=== PATIENT | female | born 1995 | race Hispanic/Latino ===

== ENCOUNTER 2017-05-22 22:24 | Emergency (ER) | payer BC ==
[~2017-05-22] VITALS: Ht 154.9 cm; Wt 73.0 kg
[2017-05-23] MEDS ORDERED: ONDANSETRON HCL 4 MG ORAL DISINTEGRATING TAB SL ONE (00:45)
[2017-05-23] MEDS ORDERED: DICYCLOMINE HCL 20 MG TAB PO ONE (00:45)
[2017-05-23] MEDS ORDERED: ZOFRAN ODT4 MG SL (01:24)
[2017-05-23] MEDS ORDERED: BROMFED DM COU118 ML PO (01:24)
[2017-05-23 02:10] VITALS: BP 115/72
== END 2017-05-23 01:30 | disposition home or self-care (01) ==
LOC: FSED 22:24
DX: R53.83 Other fatigue (principal); B34.9 Viral infection, unspecified
CPT/HCPCS: 87400; 99283

== ENCOUNTER 2017-08-06 19:00 | Emergency (ER) | payer BC ==
[~2017-08-06] VITALS: Ht 154.9 cm; Wt 74.8 kg
[~2017-08-06 19:00] MED LIST: BROMFED DM COU118 ML PO; ZOFRAN ODT4 MG SL
[2017-08-06] MEDS ORDERED: ONDANSETRON HCL 4 MG ORAL DISINTEGRATING TAB PO STA (19:19)
[2017-08-06] MEDS ORDERED: SODIUM CHLORIDE 0.9% 1000ML 1,000 ML IV STA (19:19)
[2017-08-06] MEDS ORDERED: MORPHINE SULFATE INJ 4 MG/ML INJ IV STA (19:19)
[2017-08-06 20:34] LABS: BASOPHILS % 0.3 % (0.0-1.0); EOSINOPHILS # (AUTO) 0.1 (0.0-0.4); EOSINOPHILS % 0.9 % (0.0-6.0); HEMATOCRIT 38.1 % (34.2-44.1); HEMOGLOBIN 13.2 g/dL (12.0-16.0); LYMPHOCYTES # (AUTO) 1.1 (1.0-3.2); LYMPHOCYTES % 8.2 % (18.0-39.1); MEAN CORPUSCULAR HEMOGLOBIN 31.8 pg (28-32); MEAN CORPUSCULAR HGB CONC 34.6 g/dL (31-35); MEAN CORPUSCULAR VOLUME 91.8 fL (81-99); MONOCYTES # (AUTO) 1.2 (0.2-0.8); MONOCYTES % 8.4 % (4.4-11.3); NEUTROPHILS # (AUTO) 11.3 (2.1-6.9); PLATELET COUNT 286 x10e3/uL (140-360); RED BLOOD COUNT 4.15 x10e6/uL (3.6-5.1); RED CELL DISTRIBUTION WIDTH 12.3 % (11.7-14.4)
[2017-08-06 20:40] LABS: CLARITY,URINE SL CLOUDY (CLEAR); COLOR,URINE YELLOW (YELLOW); LEUKOCYTE ESTERASE ,URINE 1+ (NEGATIVE); NITRITE,URINE NEGATIVE (NEGATIVE); PROTEIN,URINE DIPSTICK NEGATIVE (NEGATIVE)
[2017-08-06 20:41] LABS: BILIRUBIN,URINE NEGATIVE (NEGATIVE); KETONES,URINE NEGATIVE (NEGATIVE); URINE UROBILINOGEN 0.2 mg/dL (0.2 - 1)
[2017-08-06 20:46] LABS: BACTERIA,URINE MODERATE /HPF; EPITHELIAL CELLS,URINE MODERATE /LPF
[2017-08-06 22:16] LABS: ALANINE AMINOTRANSFERASE 8 IU/L (0-55); ALBUMIN 3.4 g/dL (3.5-5.0); ALKALINE PHOSPHATASE 77 IU/L (40-150); ANION GAP 13.7 mmol/L (8-16); BLOOD UREA NITROGEN 6 mg/dL (7-26); BUN/CREATININE RATIO 9 (6-25); CALCIUM 9.2 mg/dL (8.4-10.2); CARBON DIOXIDE 21 mmol/L (22-29); CHLORIDE 104 mmol/L (98-107); CREATININE, SERUM 0.67 mg/dL (0.57-1.11); EST GLOMERULAR FILTRATION RATE > 60 ML/MIN (60-); GLUCOSE 93 mg/dL (74-118); POTASSIUM 3.7 mmol/L (3.5-5.1); SODIUM 135 mmol/L (136-145)
--- NOTE | 2017-08-06 22:35 | Diagnostic Imaging Report ---
EXAM: US PELVIC DOPPLER LTD INDICATION: Suspected ectopic . COMPARISON: None TECHNIQUE: Transabdominal evaluation of the pelvis was performed in the transverse and longitudinal planes. CLINICAL HISTORY: 22 years year old G 1 P 0 A 0; last menstrual period: 06/08/2017 FINDINGS: Uterus Orientation: Normal Size: 9 x 5.1 x 6.8 cm, enlarged Mass: None Cervix: Normal Gestational Sac: Location: Intrauterine Average sac diameter: 2.77 cm Estimated sonographic GA: 8 weeks and 3 days Appearance: Normal in contour Subchorionic hemorrhage: None Yolk sac: Normal Embryo/Fetus: [place] rump length: 2.1 cm Estimated sonographic GA: 8 weeks and 5 days Cardiac activity: 179 bpm Right ovary Size: 3.7 x 1.9 x 3.8 cm Mass/Cyst: ] Transabdominal follicle measuring 1.1 cm in diameter Left ovary Size: 1.6 x 1 x 1.6 cm Mass/Cyst:None Cul-de-sac: No free fluid IMPRESSION: 1. Viable, single intrauterine without evidence of subchorionic hemorrhage. 2. No evidence of ectopic . Signed by: Dr. Mohit Boone M.D. on 08/06/2017 10:32 PM
[2017-08-06 22:42] LABS: HCG,QUANTITATIVE 81860.23 mIU/mL (0-10)
--- NOTE | 2017-08-07 14:09 | Diagnostic Imaging Report ---
EXAM: US PELVIC DOPPLER LTD INDICATION: Suspected ectopic . COMPARISON: None TECHNIQUE: Transabdominal evaluation of the pelvis was performed in the transverse and longitudinal planes. CLINICAL HISTORY: 22 years year old G 1 P 0 A 0; last menstrual period: 06/08/2017 FINDINGS: Uterus Orientation: Normal Size: 9 x 5.1 x 6.8 cm, enlarged Mass: None Cervix: Normal Gestational Sac: Location: Intrauterine Average sac diameter: 2.77 cm Estimated sonographic GA: 8 weeks and 3 days Appearance: Normal in contour Subchorionic hemorrhage: None Yolk sac: Normal Embryo/Fetus: [place] rump length: 2.1 cm Estimated sonographic GA: 8 weeks and 5 days Cardiac activity: 179 bpm Right ovary Size: 3.7 x 1.9 x 3.8 cm Mass/Cyst: ] Transabdominal follicle measuring 1.1 cm in diameter Left ovary Size: 1.6 x 1 x 1.6 cm Mass/Cyst:None Cul-de-sac: No free fluid IMPRESSION: 1. Viable, single intrauterine without evidence of subchorionic hemorrhage. 2. No evidence of ectopic . Signed by: Dr. Mohit Boone M.D. on 08/06/2017 10:32 PM
== END 2017-08-06 23:35 | disposition home or self-care (01) ==
LOC: ER 19:00
DX: O23.41 Unspecified infection of urinary tract in pregnancy, first trimester (principal); O26.891 Other specified pregnancy related conditions, first trimester; Z3A.01 Less than 8 weeks gestation of pregnancy; R10.32 Left lower quadrant pain
CPT/HCPCS: 36415; 76817; 80053; 81001; 83518; 84702; 85025; 87070; 93976; 99284

== ENCOUNTER 2017-09-06 19:47 | Emergency (ER) | payer BC ==
[~2017-09-06] VITALS: Ht 154.9 cm; Wt 74.8 kg
--- OUTSIDE RECORDS SUMMARY | 2017-09-06 19:50 | XMS REPORT | Continuity of Care Document ---
Author Author [facility] Organization [facility] Address [address] [place] [address] Phone Unavailable Care Team Providers Care Principal Consultant Name Role Phone NO, PCP PCP Unavailable Insurance Providers Guarantor Kavitha Johnson Address [address] [place] [address] Email [email or web address] Ppo Policy Number [id number] Subscriber's Name Kavitha Johnson Relationship 18 Self / Same As Patient Group Number [id number] Group Name [id number]UL[employer] PPO PLAN Effective Date 13 Advance Directives Directive Response Recorded Date/Time Does the patient have an advance directive? No 07/11/15 4:41pm If yes, is advance directive on file with [facility]? No 07/11/15 4:41pm If not on file with [facility] will patient provide a copy? No 08/06/17 9:26pm Do you have a Directive to Physician? No 08/06/17 9:26pm Do you have a Medical Power of Reduction Furnace Operator? No 08/06/17 9:26pm Do you have an out of hospital Do Not Resuscitate Order? No 08/06/17 9:26pm Do you have any special needs we should be aware of? No 08/06/17 9:26pm Do you have a support person here with you today? Yes 08/06/17 9:26pm Did patient receive Notice of Privacy Practices? Yes 08/06/17 9:26pm Did patient receive patient rights and responsibilities? Yes 08/06/17 9:26pm Problems No problem information available. Medications Current Home Medications Medication Dose Units Route Directions Days Qty Instructions Start Date D-Methorphan Hb/P-Epd Hcl/Bpm (Bromfed Dm Cough Syrup) 118 Ml Syrup 10 Ml Oral Every 4 Hours as needed for Cough 240 Milliliter 05/23/17 Ondansetron (Zofran Odt) 4 Mg Tab.rapdis 4 Mg Sublingual Every 6 Hours as needed for Nausea 14 05/23/17 Social History Smoking Status Start Date Stop Date Never Smoker Hospital Discharge Instructions No hospital discharge instruction information available. Plan of Care Discharge Date 08/06/17 11:35pm Disposition HOME, SELF-CARE Condition at Discharge Stable Instructions/Education Provided Abdominal Pain - Adult Urinary Tract Infection - Women Forms Provided Work/School Excuse Prescriptions See Medication Section Referrals Dee Hou DEYA MD Address: [address] [place] [id number] Additional Instructions/Education 1. pelvic rest 2. increase oral fluids 3. tylenol as needed for pain 4. follow up with obgyn in 1-2 days without fail 5. return to ed as needed Functional Status No functional status information available. Allergies, Adverse Reactions, Alerts Allergen Type Severity Reaction Status Last Updated Penicillin Allergy Unknown Active 08/06/17 Codeine Allergy Unknown Active 08/06/17 Acetaminophen Allergy Unknown Active 08/06/17 Immunizations No immunization information available. Vital Signs Acute Vital Signs Vital Response Date/Time Blood Pressure 115/72 mm Hg 05/23/2017 2:10am Height 5 ft 1 in 08/06/2017 7:16pm Weight 165 lb 08/06/2017 7:16pm Body Mass Index 31.2 kg/m^2 08/06/2017 7:16pm Results Laboratory Results Test Name Result Units Flags Reference Collection Date/Time Result Date/ Time Comments White Blood Count 13.72 x10e3/uL H 4.8-10.8 08/06/2017 8:16pm 2017 8:35pm Red Blood Count 4.15 x10e6/uL 3.6-5.1 08/06/2017 8:16pm 08/06/2017 8: 35pm Hemoglobin 13.2 g/dL 12.0-16.0 08/06/2017 8:1608/06/2017 8:35pm Hematocrit 38.1 % 34.2-44.1 08/06/2017 8:1608/06/2017 8:35pm Mean Corpuscular Volume 91.8 fL 81-99 08/06/2017 8:16pm 08/06/2017 8: 35pm Mean Corpuscular Hemoglobin 31.8 pg 28-32 08/06/2017 8:1608/06/2017 8:35pm Mean Corpuscular Hemoglobin Concent 34.6 g/dL 31-35 08/06/2017 8:1608/06/2017 8:35pm Red Cell Distribution Width 12.3 % 11.7-14.4 08/06/2017 8:162017 8:35pm Platelet Count 286 x10e3/uL 140-360 08/06/2017 8:16pm 08/06/2017 8: 35pm Neutrophils (%) (Auto) 82.0 % H 38.7-80.0 08/06/2017 8:1608/06/2017 8 :35pm Lymphocytes (%) (Auto) 8.2 % L 18.0-39.1 08/06/2017 8:16pm 08/06/2017 8: 35pm Monocytes (%) (Auto) 8.4 % 4.4-11.3 08/06/2017 8:16pm 08/06/2017 8: 35pm Eosinophils (%) (Auto) 0.9 % 0.0-6.0 08/06/2017 8:16pm 08/06/2017 8: 35pm Basophils (%) (Auto) 0.3 % 0.0-1.0 08/06/2017 8:1608/06/2017 8:35pm IM GRANULOCYTES % 0.2 % 0.0-1.0 08/06/2017 8:1608/06/2017 8:35pm Neutrophils # (Auto) 11.3 H 2.1-6.9 08/06/2017 8:16pm 08/06/2017 8: 35pm Lymphocytes # (Auto) 1.1 1.0-3.2 08/06/2017 8:16pm 08/06/2017 8:35pm Monocytes # (Auto) 1.2 H 0.2-0.8 08/06/2017 8:16pm 08/06/2017 8:35pm Eosinophils # (Auto) 0.1 0.0-0.4 08/06/2017 8:16pm 08/06/2017 8:35pm Basophils # (Auto) 0.0 0.0-0.1 08/06/2017 8:16pm 08/06/2017 8:35pm Absolute Immature Granulocyte (auto 0.03 x10e3/uL 0-0.1 08/06/2017 8: 16pm 08/06/2017 8:35pm Urine Color YELLOW YELLOW 08/06/2017 8:16pm 08/06/2017 8:41pm Urine Clarity SL CLOUDY CLEAR 08/06/2017 8:16pm 08/06/2017 8:41pm Urine Specific [place] 1.020 1.010-1.025 08/06/2017 8:16pm 2017 8:41pm Urine pH 6 5 - 7 08/06/2017 8:16pm 08/06/2017 8:41pm Urine Leukocyte Esterase 1+ H NEGATIVE 08/06/2017 8:16pm 08/06/2017 8: 41pm Urine Nitrite NEGATIVE NEGATIVE 08/06/2017 8:16pm 08/06/2017 8:41pm Urine Protein NEGATIVE NEGATIVE 08/06/2017 8:16pm 08/06/2017 8:41pm Urine Glucose (UA) NEGATIVE NEGATIVE 08/06/2017 8:16pm 08/06/2017 8: 41pm Urine Ketones NEGATIVE NEGATIVE 08/06/2017 8:16pm 08/06/2017 8:41pm Urine Urobilinogen 0.2 mg/dL 0.2 - 1 08/06/2017 8:16pm 08/06/2017 8: 41pm Urine Bilirubin NEGATIVE NEGATIVE 08/06/2017 8:16pm 08/06/2017 8: 41pm Urine Blood NEGATIVE NEGATIVE 08/06/2017 8:16pm 08/06/2017 8:41pm Urine WBC 6-10 /HPF H 0-5 08/06/2017 8:16pm 08/06/2017 8:46pm Urine RBC NONE /HPF 0-5 08/06/2017 8:16pm 08/06/2017 8:46pm Urine Bacteria MODERATE /HPF H NONE 08/06/2017 8:16pm 08/06/2017 8:46pm Urine Epithelial Cells MODERATE /LPF NONE 08/06/2017 8:16pm 08/06/2017 8:46pm Sodium Level 135 mmol/L L 136-145 08/06/2017 9:50pm 08/06/2017 10:16pm Potassium Level 3.7 mmol/L 3.5-5.1 08/06/2017 9:50pm 08/06/2017 10: 16pm Chloride Level 104 mmol/L 98-107 08/06/2017 9:50pm 08/06/2017 10:16pm Carbon Dioxide Level 21 mmol/L L 22-08/06/2017 9:50pm 08/06/2017 10: 16pm Anion Gap 13.7 mmol/L 8-08/06/2017 9:50pm 08/06/2017 10:16pm Blood Urea Nitrogen 6 mg/dL L -08/06/2017 9:50pm 08/06/2017 10:16pm Creatinine 0.67 mg/dL 0.57-1.11 08/06/2017 9:50pm 08/06/2017 10:16pm BUN/Creatinine Ratio 9 -08/06/2017 9:50pm 08/06/2017 10:16pm Estimat Glomerular Filtration Rate > 60 ML/MIN 6008/06/2017 9:50pm 10:16pm Ranges were taken from the National Kidney Disease Education Program and the National Kid[employer] Foundation literature. Reference ranges: 60 or greater: Normal 16-59 (for 3 consecutive months): Chronic kidney disease 15 or less: Kidney failure Glucose Level 93 mg/dL 74-118 08/06/2017 9:5008/06/2017 10:16pm Calcium Level 9.2 mg/dL 8.4-10.2 08/06/2017 9:5008/06/2017 10:16pm Total Bilirubin 0.4 mg/dL 0.2-1.2 08/06/2017 9:50pm 08/06/2017 10:16pm Aspartate Amino Transf (AST/SGOT) 12 IU/L 5-34 08/06/2017 9:50pm 2017 10:16pm Alanine Aminotransferase (ALT/SGPT) 8 IU/L 0-55 08/06/2017 9:50pm 08/06 10:16pm Total Protein 6.8 g/dL 6.5-8.1 08/06/2017 9:50pm 08/06/2017 10:16pm Albumin 3.4 g/dL L 3.5-5.0 08/06/2017 9:50pm 08/06/2017 10:16pm Globulin 3.4 g/dL 2.3-3.5 08/06/2017 9:50pm 08/06/2017 10:16pm Albumin/Globulin Ratio 1.0 0.8-2.0 08/06/2017 9:50pm 08/06/2017 10: 16pm Alkaline Phosphatase 77 IU/L 40-150 08/06/2017 9:50pm 08/06/2017 10: 16pm Human Chorionic Gonadotropin, Quant 65902.23 mIU/mL H 0-10 08/06/2017 9: 50pm 08/06/2017 10:42pm Group A Streptococcus Screen NEGATIVE NEGATIVE 08/06/2017 10:00pm 10:30pm Procedures Procedure Status Date Provider(s) Limited Doppler ultrasound of vessels of pelvis Active 08/06/17 JOSE C HUI OVERHEAD LINE WORKER Encounters Encounter Location Arrival/Admit Date Discharge/Depart Date Attending Provider Departed Emergency Room [facility] 08/06/17 7:00pm 11:35pm ALBER CARTER MD Departed Emergency Room [facility] 05/22/17 10:24pm 05/23 1:30am RASHAD CALVO MD
--- OUTSIDE RECORDS SUMMARY | 2017-09-06 19:50 | XMS REPORT ---
Author [facility] Address Unknown Phone Unavailable Care Team Providers Care Financial Management Analyst Name Role Phone ALBER CARTER Unavailable Unavailable Problems This patient has no known problems. Allergies, Adverse Reactions, Alerts This patient has no known allergies or adverse reactions. Medications This patient has no known medications. Results Test Description Test Time Test Comments Text Results Atomic Results Result Comments US PELVIC DOPPLER LTD [place] [address] Patient Name: RIKI JOHNSON MR #: [id number] : 1995 Age/Sex: 22/F Req #: [id number] Adm Physician: Ordered by: JOSE C HUI PARISH WORKER Report #: [id number] Location: ER Room/Bed: Procedure: [id number] US/US PELVIC DOPPLER LTD Exam Date: 08/06/17 Exam Time: 2101 REPORT STATUS: Signed EXAM: US PELVIC DOPPLER LTD INDICATION: Suspected ectopic . COMPARISON: None TECHNIQUE: Transabdominal evaluation of the pelvis was performed in the transverse and longitudinal planes. CLINICAL HISTORY: 22 years year old G 1 P 0 A 0; last menstrual period: 06/08/2017 FINDINGS: Uterus Orientation: Normal Size: 9 x 5.1 x 6.8 cm, enlarged Mass: None Cervix: Normal Gestational Sac: Location: Intrauterine Average sac diameter: 2.77 cm Estimated sonographic GA: 8 weeks and 3 days Appearance : Normal in contour Subchorionic hemorrhage: None Yolk sac: Normal Embryo/Fetus: Uncertain rump length: 2.1 cm Estimated sonographic GA: 8 weeks and 5 days Cardiac activity: 179 bpm Right ovary Size: 3.7 x 1.9 x 3.8 cm Mass/Cyst: ] Transabdominal follicle measuring 1.1 cm in diameter Left ovary Size: 1.6 x 1 x 1.6 cm Mass/Cyst:None Cul-de-sac: No free fluid IMPRESSION: 1. Viable, single intrauterine without evidence of subchorionic hemorrhage. 2. No evidence of ectopic . Signed by: Dr. Mohit Boone M.D. on 08/06/2017 10:32 PM Dictated By: MOHIT LEO MD 04 Transcribed By: NGOC on 08/07/171404 COPY TO: JOSE C HUI PARISH WORKER US OB TRANSVAG 1ST TRI SINGLE [place] [address] Patient Name: RIKI JOHNSON MR #: [id number] : 1995 Age/Sex: 22/F Req #: [id number] Adm Physician: Ordered by: ALBER CARTER MD Report #: [id number] Location: ER Room/Bed: Procedure: [id number] US/US OB TRANSVAG 1ST TRI SINGLE Exam Date: 08/06/17 Exam Time: 1745 REPORT STATUS: Signed EXAM: US PELVIC DOPPLER LTD INDICATION: Suspected ectopic . COMPARISON : None TECHNIQUE: Transabdominal evaluation of the pelvis was performed in the transverse and longitudinal planes. CLINICAL HISTORY: 22 years year old G 1 P 0 A 0; last menstrual period: 06/08/2017 FINDINGS: Uterus Orientation: Normal Size: 9 x 5.1 x 6.8 cm, enlarged Mass: None Cervix: Normal Gestational Sac: Location: Intrauterine Average sac diameter: 2.77 cm Estimated sonographic GA: 8 weeks and 3 days Appearance: Normal in contour Subchorionic hemorrhage: None Yolk sac: Normal Embryo/Fetus: Uncertain rump length: 2.1 cm Estimated sonographic GA: 8 weeks and 5 days Cardiac activity: 179 bpm Right ovary Size: 3.7 x 1.9 x 3.8 cm Mass/Cyst: ] Transabdominal follicle measuring 1.1 cm in diameter Left ovary Size: 1.6 x 1 x 1.6 cm Mass/Cyst:None Cul-de-sac: No free fluid IMPRESSION: 1. Viable, single intrauterine without evidence of subchorionic hemorrhage. 2. No evidence of ectopic . Signed by: Dr. Mohit Boone M.D. on 2017 10:32 PM Dictated By: MOHIT LEO MD 04 Transcribed By: NGOC on 08/07/171404 COPY TO: ALBER CARTER MD
[2017-09-06 21:23] LABS: BILIRUBIN,URINE NEGATIVE (NEGATIVE); CLARITY,URINE CLEAR (CLEAR); COLOR,URINE YELLOW (YELLOW); KETONES,URINE 1+ (NEGATIVE); LEUKOCYTE ESTERASE ,URINE 2+ (NEGATIVE); NITRITE,URINE NEGATIVE (NEGATIVE); PROTEIN,URINE DIPSTICK NEGATIVE (NEGATIVE); URINE UROBILINOGEN 0.2 mg/dL (0.2 - 1)
[2017-09-06 21:38] LABS: BACTERIA,URINE RARE /HPF; EPITHELIAL CELLS,URINE MANY /LPF; RBC,URINE 0-5 /HPF (0-5)
[2017-09-06 21:39] LABS: MUCUS,URINE FEW (RARE)
== END 2017-09-06 23:15 | disposition short-term general hospital (02) ==
LOC: ER 19:47
DX: R51 Headache (principal)
CPT/HCPCS: 81001

== ENCOUNTER 2019-01-22 18:23 | Emergency (ER) | payer BC ==
[~2019-01-22] VITALS: Ht 154.9 cm; Wt 74.8 kg
[2019-01-22] MEDS ORDERED: FAMOTIDINE 20 MG/2 ML VIAL IV STA (18:32)
[2019-01-22] MEDS ORDERED: SODIUM CHLORIDE 0.9% 1000ML 1,000 ML IV STA (18:32)
[2019-01-22] MEDS ORDERED: ONDANSETRON HCL INJ 2MG/ML 2ML 2 MG/ML VIAL IV STA (18:32)
[2019-01-22 19:07] LABS: BASOPHILS % 0.2 % (0.0-1.0); EOSINOPHILS # (AUTO) 0.1 (0.0-0.4); EOSINOPHILS % 0.8 % (0.0-6.0); HEMATOCRIT 41.7 % (34.2-44.1); HEMOGLOBIN 13.7 g/dL (12.0-16.0); LYMPHOCYTES # (AUTO) 1.8 (1.0-3.2); LYMPHOCYTES % 16.9 % (18.0-39.1); MEAN CORPUSCULAR HEMOGLOBIN 30.1 pg (28-32); MEAN CORPUSCULAR HGB CONC 32.9 g/dL (31-35); MEAN CORPUSCULAR VOLUME 91.6 fL (81-99); MONOCYTES # (AUTO) 0.6 (0.2-0.8); MONOCYTES % 5.1 % (4.4-11.3); NEUTROPHILS # (AUTO) 8.2 (2.1-6.9); NEUTROPHILS % 76.6 % (38.7-80.0); PLATELET COUNT 293 x10e3/uL (140-360); RED BLOOD COUNT 4.55 x10e6/uL (3.6-5.1); RED CELL DISTRIBUTION WIDTH 13.2 % (11.7-14.4)
[2019-01-22 19:10] LABS: PREGNANCY TEST, URINE NEGATIVE (NEGATIVE)
--- NOTE | 2019-01-22 19:12 | Diagnostic Imaging Report ---
EXAMINATION: CHEST SINGLE (PORTABLE) INDICATION: Nausea. Near syncope. ^ERMD ORDER ^[id number] ^1900 ^Y COMPARISON: None FINDINGS: TUBES and LINES: None. LUNGS: Lungs are well inflated. Lungs are clear. There is no evidence of pneumonia or pulmonary edema. PLEURA: No pleural effusion or pneumothorax. HEART AND MEDIASTINUM: The cardiomediastinal silhouette is unremarkable. BONES AND SOFT TISSUES: No acute osseous lesion. Soft tissues are unremarkable. UPPER ABDOMEN: No free air under the diaphragm. IMPRESSION: No acute thoracic abnormality. Signed by: Dr. Jesse Kenny M.D. on 01/22/2019 7:09 PM
[2019-01-22 19:14] LABS: CLARITY,URINE SL CLOUDY (CLEAR); COLOR,URINE YELLOW (YELLOW)
[2019-01-22 19:15] LABS: BILIRUBIN,URINE NEGATIVE (NEGATIVE); KETONES,URINE NEGATIVE (NEGATIVE); LEUKOCYTE ESTERASE ,URINE NEGATIVE (NEGATIVE); NITRITE,URINE NEGATIVE (NEGATIVE); PROTEIN,URINE DIPSTICK NEGATIVE (NEGATIVE); URINE UROBILINOGEN 0.2 mg/dL (0.2 - 1)
[2019-01-22 19:20] LABS: ALANINE AMINOTRANSFERASE 15 IU/L (0-55); ALBUMIN 4.1 g/dL (3.5-5.0); ALBUMIN/GLOBULIN RATIO 1.2 (0.8-2.0); ALKALINE PHOSPHATASE 98 IU/L (40-150); ANION GAP 11.8 mmol/L (8-16); BLOOD UREA NITROGEN 15 mg/dL (7-26); BUN/CREATININE RATIO 18 (6-25); CALCIUM 9.6 mg/dL (8.4-10.2); CARBON DIOXIDE 26 mmol/L (22-29); CHLORIDE 102 mmol/L (98-107); CREATININE, SERUM 0.82 mg/dL (0.57-1.11); EST GLOMERULAR FILTRATION RATE > 60 ML/MIN (60-); GLUCOSE 100 mg/dL (74-118); LIPASE 25 U/L (8-78); MAGNESIUM 1.9 MG/DL (1.3-2.1); POTASSIUM 3.8 mmol/L (3.5-5.1); SODIUM 136 mmol/L (136-145)
[2019-01-22 19:22] LABS: BACTERIA,URINE MANY /HPF; EPITHELIAL CELLS,URINE MODERATE /LPF
== END 2019-01-22 20:20 | disposition home or self-care (01) ==
LOC: ER 18:30
DX: R11.0 Nausea (principal); R53.1 Weakness; R00.1 Bradycardia, unspecified; Z88.5 Allergy status to narcotic agent; Z88.0 Allergy status to penicillin
CPT/HCPCS: 36415; 71045; 80053; 81001; 81025; 83690; 83735; 85025; 87086; 93005; 99284; J2405; J7030